=== PATIENT | male | born 1975 | race African-American/Black ===

== ENCOUNTER 2016-12-01 01:56 | Emergency (ER) | payer OTHER ==
[~2016-12-01] VITALS: Ht 188 cm; Wt 106.0 kg
[~2016-12-01 01:56] MED LIST: BACLOFEN10 MG PO; FIORICET,ESG1 TABLET PO; FLEXERIL5 MG PO; MOTRIN600 MG PO; MOTRIN800 MG PO; NAPROSYN500 MG PO; NAPROXEN500 MG PO; NORCO 5/3251 TABLET PO; PERCOCET 5/31 TABLET PO; PREDNISONE20 MG PO; ULTRAM50 MG PO; VALIUM5 MG PO; VICODIN,LORT1 TABLET PO; ZANTAC150 MG PO; no home
[2016-12-01] MEDS ORDERED: NORCO 5/3251 TABLET PO (04:54)
[2016-12-01 05:14] VITALS: BP 144/83
== END 2016-12-01 05:22 | disposition home or self-care (01) ==
LOC: EME 01:56
DX: S80.11XA Contusion of right lower leg, initial encounter (principal); S39.012A Strain of muscle, fascia and tendon of lower back, initial encounter; V49.50XA Passenger injured in collision with unspecified motor vehicles in traffic accident, initial encounter
CPT/HCPCS: 73590; 99281; 99283